=== PATIENT | male | born 1965 | race Caucasian/White ===

== ENCOUNTER 2021-04-10 21:06 | Emergency (ER) | payer BC ==
--- NOTE | 2021-04-10 22:02 | ED Physician Documentation ---
History of Present Illness - Stated complaint Stated Complaint: R LEG SWELLING - Chief complaint Chief Complaint: Ext Problem - History obtained from History obtained from: Patient - History of Present Illness Timing: How many weeks ago (2) Pain level now: 0 Improved by: nothing Worsened by: no exacerbating factors - Additonal information Additional information: c/o 2 weeks of red, swollen, tender area on posterior aspect of right calf. Denies trauma, no h/o similar symptoms. Denies CP, denies dyspnea. Review of Systems Constitutional: denies: Fever Cardiac: denies: Chest pain / pressure Respiratory: denies: Dyspnea, Cough Musculoskeletal: reports: Extremity pain, Extremity swelling PD PAST MEDICAL HISTORY - Past Medical History Past Medical History: Yes Cardiovascular: None Respiratory: None Neuro: None Endocrine/Autoimmune: None GI: None : None HEENT: None Psych: None Musculoskeletal: None Derm: None - Past Surgical History Past Surgical History: No - Present Medications Home Medications: Ambulatory Orders Medication Instructions Recorded Confirmed Rivaroxaban [Xarelto] 10 mg PO DAILY #45 tablet 04/11/21 - Allergies Allergies/Adverse Reactions: Allergies Allergy/AdvReac Type Severity Reaction Status Date / Time No Known Drug Allergies Allergy Verified 04/10/21 21:32 - Social History Does the pt smoke?: No Smoking Status: Never smoker Does the pt drink ETOH?: Yes Does the pt have substance abuse?: No - Immunizations Immunizations are current?: Yes - POLST Patient has POLST: No PD ED PE NORMAL - Vitals Vital signs reviewed: Yes - General General: Alert and oriented X 3, No acute distress, Well developed/nourished PD ED PE EXPANDED - Extremities MARK LE visual: 1 - swelling (raised erythema, TTP), tenderness Results - Vitals Vitals: Vital Signs - 24 hr 04/10/21 04/10/21 04/11/21 21:26 21:58 01:25 Temperature 37.2 C 37.2 C 37.1 C Heart Rate 87 85 81 Respiratory 14 15 17 Rate Blood Pressure 156/90 H 152/88 H 149/81 H O2 Saturation 96 96 98 Oxygen O2 Source Room air - Labs Labs: Laboratory Tests 04/11/21 04/11/21 01:30 01:30 PT 13.1 H INR 1.2 APTT 26.2 Sodium 137 Potassium 3.9 Chloride 103 Carbon Dioxide 25 Anion Gap 9.0 BUN 16 Creatinine 0.8 Estimated GFR (MDRD) 100 Glucose 104 H Calcium 8.9 - Rads (name of study) RLE doppler US Radiology: Prelim report reviewed, See rad report, Other (final report indicates "thrombus identified in the left upper medial calf superficial venous system" (presumed to mean right, as the RLE was location of study and not LLE)) PD MEDICAL DECISION MAKING - ED course Complexity details: reviewed results, re-evaluated patient, considered differential, d/w patient ED course: superficial thrombus in "upper medial calf vein" (per radiologist's in terpretation) found on US, correlating with area of erythema and tenderness on exam. Patient says the symptoms have been steadily worsening since they started 2 weeks ago. I d/w patient option of anticoagulation and after discussing risks/benefits of anticoagulation vs. observation for clinical worsening (either option will require f/u with repeat US), patient made informed decision to start anticoagulant at this time, which is my recommendation. Per uptodate, recommendations are for SQ anticoagulants or else prophylactic dose of Xarelto (10mg QD) for 45 days. Xarelto dose given in ED and rx provided, instructed to return if he worsens, including chest pain, dyspnea, fever, and to follow up with PMD for reevaluation and repeat US. Departure - Departure Disposition: 01 Home, Self Care Clinical Impression: Acute superficial venous thrombosis of right lower extremity Condition: Good Instructions: ED Phlebitis Superficial Prescriptions: Rivaroxaban [Xarelto] 10 mg PO DAILY #45 tablet Comments: Follow up with your doctor; call in the morning to arrange for immediate follow up. You will likely need to have the ultrasound repeated within 7-10 days to see if it is changing in size to any significant extent. Discharge Date/Time: 04/11/21 01:43
[2021-04-11] MEDS ORDERED: RIVAROXABAN 10 MG TABLET PO STA (01:10)
[2021-04-11 01:32] VITALS: BP 149/81
[2021-04-11 01:42] LABS: INR 1.2 (0.8-1.2); PT - PROTHROMBIN TIME 13.1 secs (9.9-12.6)
[2021-04-11 01:45] LABS: CALCIUM 8.9 mg/dL (8.5-10.3); CREATININE 0.8 mg/dL (0.6-1.2); POTASSIUM 3.9 mmol/L (3.5-5.0)
[2021-04-11 01:49] LABS: PARTIAL THROMBOPLASTIN TIME 26.2 secs (24.9-33.3)
--- NOTE | 2021-04-11 07:14 | Ultrasound Report ---
PROCEDURE: Duplex Ext Veins Right INDICATIONS: calf pain, swelling, erythema TECHNIQUE: Real-time imaging, as well as color and pulse Doppler interrogation, were performed of the lower extr emity deep veins from the inguinal ligament to the popliteal fossa. COMPARISON: None. FINDINGS: The deep veins are normally compressible, and free of intraluminal thrombus. Color and pu lse Doppler demonstrate normal phasic intraluminal flow. There is normal augmentation response to di stal compression maneuver. Thrombus noted in upper medial calf superficial vein. IMPRESSION: 1. No evidence of tendinosis involving the deep venous system of the right lower extremity. 2. Thrombus identified in the left upper medial calf superficial venous system. Reviewed by: Janice Pittman MD, PhD on 04/11/2021 7:13 AM PDT Approved by: Janice Pittman MD, PhD on 04/11/2021 7:13 AM PDT Station ID: [id number]
== END 2021-04-11 01:43 | disposition home or self-care (01) ==
LOC: ED 21:06
DX: I82.811 Embolism and thrombosis of superficial veins of right lower extremity (principal)
CPT/HCPCS: 36415; 80048; 85610; 85730; 93971; 99283; A9270

== ENCOUNTER 2021-05-30 13:55 | Outpatient (CLI) | payer BC ==
--- NOTE | 2021-05-30 15:43 | Ultrasound Report ---
PROCEDURE: Duplex Ext Veins Right INDICATIONS: SUPERFICIAL THROMBOPHLEBITIS TECHNIQUE: Real-time imaging, as well as color and pulse Doppler interrogation, were performed of the lower extr emity deep veins from the inguinal ligament to the popliteal fossa. COMPARISON: 04/10/2021 venous ultrasound right lower extremity.. FINDINGS: The deep veins are normally compressible, and free of intraluminal thrombus. Color and pu lse Doppler demonstrate normal phasic intraluminal flow. There is normal augmentation response to di stal compression maneuver. The superficial venous thrombosis within the proximal medial right calf i s again seen. IMPRESSION: No DVT found. Persistence of superficial vein thrombus within the medial upper right jemal f area, previously documented. Reviewed by: Colby Abel MD on 05/30/2021 3:42 PM PDT Approved by: Colby Abel MD on 05/30/2021 3:42 PM PDT Station ID: [id number]
== END 2021-05-30 13:56 | disposition home or self-care (01) ==
LOC: DI 13:55
PROVIDERS: ATTEND Family Medicine
DX: I80.01 Phlebitis and thrombophlebitis of superficial vessels of right lower extremity (principal)

== ENCOUNTER 2021-07-30 17:12 | Emergency (ER) | payer BC ==
[2021-07-30 17:21] VITALS: BP 177/101
--- NOTE | 2021-07-30 17:37 | ED Physician Documentation ---
History of Present Illness - Stated complaint Stated Complaint: RT CALF PX - Chief complaint Chief Complaint: Ext Problem - Additonal information Additional information: 56-year-old male return to the emergency department for evaluation of acute onset right mid calf pain that began this morning. He has a history of a superficial thrombophlebitis in the right mid calf that was diagnosed in March 2021. He did complete 45 days of Xarelto. He had a repeat ultrasound In early May that did not show a deep vein thrombosis but he did have persistence of the superficial vein thrombus within the medial right upper calf area Patient denies chest pain or shortness of air. No recent travel. There is no leg swelling. He has no personal history of cancer. There is no family history of deep vein thrombosis. He takes no medications other than occasional Tylenol. Review of Systems Constitutional: denies: Fever, Chills Eyes: reports: Reviewed and negative Ears: reports: Reviewed and negative Nose: reports: Reviewed and negative Throat: reports: Reviewed and negative Musculoskeletal: reports: Other (Right posterior calf tenderness) Neurologic: reports: Reviewed and negative Psychiatric: reports: Reviewed and negative PD PAST MEDICAL HISTORY - Past Medical History Cardiovascular: None Respiratory: None Neuro: None Endocrine/Autoimmune: None GI: None : None HEENT: None Psych: None Musculoskeletal: None Derm: None - Past Surgical History Past Surgical History: No - Present Medications Home Medications: Ambulatory Orders Medication Instructions Recorded Confirmed Rivaroxaban [Xarelto] 10 mg PO DAILY #45 tablet 04/11/21 - Allergies Allergies/Adverse Reactions: Allergies Allergy/AdvReac Type Severity Reaction Status Date / Time No Known Drug Allergies Allergy Verified 07/30/21 17:21 - Social History Does the pt smoke?: No Smoking Status: Never smoker Does the pt drink ETOH?: Yes Does the pt have substance abuse?: No - Immunizations Immunizations are current?: Yes - POLST Patient has POLST: No PD ED PE NORMAL - General General: Alert and oriented X 3, No acute distress - HEENT HEENT: PERRL - Cardiac Cardiac: RRR, No murmur - Respiratory Respiratory: Clear bilaterally - Abdomen Abdomen: Normal bowel sounds, Soft, Non tender, Non distended - Extremities Extremities: No deformity, No tenderness to palpate. No: No calf tenderness / cord (Mild tenderness to the right posterior calf with deep palpation. 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 He was seen in this ER in March diagnosed with a superficial vein thrombus and was started on Xarelto which he took for 45 days. Follow-up ultrasound showed a persistence of this thrombus but no DVT. Ultrasound today again demonstrates the same thrombus without findings of deep vein thrombosis. Etiology of this persistent thrombus in the superficial veins is not clear though the patient does not need to be re-anticoagulated today. I have advised close follow-up with his primary care provider. In the future further evaluation with a floor steward/stewardess is a possibility. Emergent return precautions were discussed for concerns of chest pain, shortness of air or leg swelling redness or concerns of DVT. Departure - Departure Disposition: 01 Home, Self Care Clinical Impression: Superficial vein thrombosis Condition: Stable Record reviewed to determine appropriate education?: Yes Comments: Sedrick you were seen today in the ER for pain in your right calf. You were diagnosed in March with a superficial vein thrombus in your right leg. You did receive 45 days of anticoagulation. A repeat ultrasound in May showed a persistence of the superficial vein thrombus but there has never been any findings of a deep vein thrombus. The ultrasound today again shows that this superficial thrombus. At this time we do not need to resume anticoagulation. I think it is important to discuss this ED visit with your primary care provider. In the long-term they may want to consider further evaluation of your clotting risk by evaluation with a floor steward/stewardess or a blood doctor. If at any point you develop shortness of air or have chest pain, if you develop leg swelling or leg redness then please return immediately to the ER for a second evaluation.
--- NOTE | 2021-07-30 18:54 | Ultrasound Report ---
PROCEDURE: Duplex Ext Veins Right INDICATIONS: leg pain TECHNIQUE: Real-time imaging, as well as color and pulse Doppler interrogation, were performed of the lower extr emity deep veins from the inguinal ligament to the popliteal fossa. COMPARISON: Venous ultrasound 05/30/21, 04/10/21 FINDINGS: The deep veins are normally compressible, and free of intraluminal thrombus. Color and pu lse Doppler demonstrate normal phasic intraluminal flow. There is normal augmentation response to di stal compression maneuver. There is persistent appearance of partial thrombosis of a medial superficial vein. IMPRESSION: 1. No deep venous thrombosis. 2. Persistence of superficial thrombophlebitis. Reviewed by: Verna Ramires MD on 07/30/2021 6:53 PM PDT Approved by: Verna Ramires MD on 07/30/2021 6:53 PM PDT Station ID: [id number]
== END 2021-07-30 18:38 | disposition home or self-care (01) ==
LOC: ED 17:12
DX: I82.811 Embolism and thrombosis of superficial veins of right lower extremity (principal)
CPT/HCPCS: 99284

== ENCOUNTER 2021-08-15 08:00 | Outpatient (CLI) | payer BC ==
[2021-08-15 17:38] LABS: BASOPHILS # (AUTO) 0.1 10^3/uL (0.0-0.1); BASOPHILS % (AUTO) 0.6 %; EOSINOPHILS # (AUTO) 0.1 10^3/uL (0.0-0.7); EOSINOPHILS % (AUTO) 0.8 %; HCT - HEMATOCRIT 45.4 % (42.0-52.0); HGB - HEMOGLOBIN 15.4 g/dL (14.0-18.0); LYMPHOCYTES # (AUTO) 1.7 10^3/uL (1.5-3.5); LYMPHOCYTES % (AUTO) 21.3 %; MEAN CORPUSCULAR HEMOGLOBIN 30.9 pg (27.0-31.0); MEAN CORPUSCULAR HGB CONC 33.9 g/dL (32.0-36.0); MEAN CORPUSCULAR VOLUME 91.2 fL (80.0-94.0); MONOCYTES # (AUTO) 0.4 10^3/uL (0.0-1.0); NEUTROPHILS # (AUTO) 5.6 10^3/uL (1.5-6.6); NEUTROPHILS % (AUTO) 72.2 %; PLT - PLATELET COUNT 190 10^3/uL (130-450); RED BLOOD COUNT 4.98 10^6/uL (4.70-6.10); RED CELL DISTRIBUTION WIDTH 13.2 % (12.0-15.0); WHITE BLOOD COUNT 7.8 x10^3/uL (4.8-10.8)
[2021-08-15 18:03] LABS: ALBUMIN 4.4 g/dL (3.2-5.5); ALBUMIN/GLOBULIN RATIO 1.4 (1.0-2.2); ALKALINE PHOSPHATASE 64 IU/L (42-121); ALT ALANINE AMINOTRANSFERASE 22 IU/L (10-60); AST ASPARTATE AMINOTRANSFERASE 19 IU/L (10-42); BILIRUBIN,TOTAL 1.1 mg/dL (0.2-1.0); BUN - BLOOD UREA NITROGEN 23 mg/dL (6-20); CALCIUM 8.8 mg/dL (8.5-10.3); CARBON DIOXIDE - CO2 27 mmol/L (21-32); CHLORIDE 102 mmol/L (101-111); CHOL/HDL RATIO 4.7 (<5.0); CHOLESTEROL 175 mg/dL; CREATININE 0.8 mg/dL (0.6-1.2); GFR - MDRD 100 (>89); GLUCOSE 92 mg/dL (70-100); HDL CHOLESTEROL 37 mg/dL; LDL CHOLESTEROL,CALCULATED 116 mg/dL; LDL/HDL RATIO 3.1 (<3.6); POTASSIUM 3.9 mmol/L (3.5-5.0); SODIUM 137 mmol/L (135-145); TOTAL PROTEIN 7.5 g/dL (6.7-8.2); TRIGLYCERIDES 109 mg/dL; VLDL CHOLESTEROL 22 mg/dL
[2021-08-15 18:07] LABS: THYROID STIMULATING HORMONE 1.82 uIU/mL (0.34-5.60)
== END 2021-08-15 23:59 | disposition home or self-care (01) ==
LOC: LAB.WCP 08:00
PROVIDERS: ATTEND Family Medicine
DX: I10 Essential (primary) hypertension (principal); Z12.5 Encounter for screening for malignant neoplasm of prostate
CPT/HCPCS: 36415; 80053; 80061; 83721; 84153; 84443; 85025

== ENCOUNTER 2021-08-16 08:00 | Outpatient (CLI) | payer BC | END 2021-08-16 23:59 | disposition home or self-care (01) | LOC: LAB 08:00 | PROVIDERS: ATTEND Family Medicine | DX: Z20.822 Contact with and (suspected) exposure to COVID-19 (principal) ==

== ENCOUNTER 2021-10-06 08:00 | Outpatient (CLI) | payer BC | END 2021-10-06 23:59 | disposition home or self-care (01) | LOC: LAB.WCP 08:00 | PROVIDERS: ATTEND Nurse Practitioner | DX: R97.20 Elevated prostate specific antigen [PSA] (principal) | CPT/HCPCS: 36415; 84153 ==

== ENCOUNTER 2021-10-20 08:20 | Outpatient (CLI) | payer BC ==
--- NOTE | 2021-10-20 10:07 | Ultrasound Report ---
PROCEDURE: Duplex Ext Veins Right INDICATIONS: SVT TO FOLLOW UP ON BLOOD CLOT TECHNIQUE: Real-time imaging, as well as color and pulse Doppler interrogation, were performed of the lower extr emity deep veins from the inguinal ligament to the popliteal fossa. COMPARISON: Ultrasound duplex 07/30/2021 FINDINGS: The deep veins are normally compressible, and free of intraluminal thrombus. Color and pu lse Doppler demonstrate normal phasic intraluminal flow. There is normal augmentation response to di stal compression maneuver. There is persistent appearance of superficial thrombus within the medial superficial vein. No interva l change. IMPRESSION: Persistent appearance of superficial thrombophlebitis. No deep venous thrombosis. Reviewed by: Verna Ramires MD on 10/20/2021 10:06 AM [facility] Approved by: Verna Ramires MD on 10/20/2021 10:06 AM PST Station ID: [id number]
== END 2021-10-20 08:21 | disposition home or self-care (01) ==
LOC: DI 08:20
PROVIDERS: ATTEND Internal Medicine Hematology & Oncology
DX: I80.01 Phlebitis and thrombophlebitis of superficial vessels of right lower extremity (principal)

== ENCOUNTER 2024-03-30 08:24 | Outpatient (CLI) | payer OTHER, BC ==
[2024-03-30 14:47] LABS: BASOPHILS # (AUTO) 0.1 10^3/uL (0.0-0.1); BASOPHILS % (AUTO) 0.6 %; EOSINOPHILS # (AUTO) 0.1 10^3/uL (0.0-0.7); HCT - HEMATOCRIT 45.9 % (42.0-52.0); HGB - HEMOGLOBIN 14.7 g/dL (14.0-18.0); LYMPHOCYTES # (AUTO) 1.7 10^3/uL (1.5-3.5); LYMPHOCYTES % (AUTO) 20.4 %; MEAN CORPUSCULAR HEMOGLOBIN 28.9 pg (27.0-31.0); MEAN CORPUSCULAR VOLUME 90.4 fL (80.0-94.0); MONOCYTES # (AUTO) 0.5 10^3/uL (0.0-1.0); MONOCYTES % (AUTO) 5.7 %; NEUTROPHILS % (AUTO) 71.8 %; PLT - PLATELET COUNT 201 10^3/uL (130-450); RED BLOOD COUNT 5.08 10^6/uL (4.70-6.10); RED CELL DISTRIBUTION WIDTH 13.2 % (12.0-15.0); WHITE BLOOD COUNT 8.3 x10^3/uL (4.8-10.8)
[2024-03-30 15:23] LABS: ALBUMIN 4.2 g/dL (3.2-5.5); ALBUMIN/GLOBULIN RATIO 1.5 (1.0-2.2); ALKALINE PHOSPHATASE 77 IU/L (42-121); ALT ALANINE AMINOTRANSFERASE 19 IU/L (10-60); AST ASPARTATE AMINOTRANSFERASE 15 IU/L (10-42); BILIRUBIN,TOTAL 0.7 mg/dL (0.2-1.0); BUN - BLOOD UREA NITROGEN 16 mg/dL (6-20); CALCIUM 9.3 mg/dL (8.5-10.3); CARBON DIOXIDE - CO2 28 mmol/L (21-32); CHLORIDE 103 mmol/L (101-111); CHOL/HDL RATIO 4.8 (<5.0); CHOLESTEROL 172 mg/dL; CREATININE 0.9 mg/dL (0.6-1.3); GFR - MDRD 87 (>89); GLUCOSE 97 mg/dL (74-104); HDL CHOLESTEROL 36 mg/dL; LDL CHOLESTEROL,CALCULATED 108 mg/dL; SODIUM 136 mmol/L (135-145); TRIGLYCERIDES 142 mg/dL (48-352); VLDL CHOLESTEROL 28 mg/dL
== END 2024-03-30 08:25 | disposition home or self-care (01) ==
LOC: LAB.S 08:24
PROVIDERS: ATTEND Nurse Practitioner
DX: I10 Essential (primary) hypertension (principal); Z13.220 Encounter for screening for lipoid disorders; R97.20 Elevated prostate specific antigen [PSA]
CPT/HCPCS: 36415; 80053; 80061; 83721; 84153; 85025

== ENCOUNTER 2024-04-24 10:15 | Outpatient (CLI) | payer OTHER, BC | END 2024-04-24 10:16 | disposition home or self-care (01) | LOC: LAB.S 10:15 | PROVIDERS: ATTEND Urology | DX: R97.20 Elevated prostate specific antigen [PSA] (principal) | CPT/HCPCS: 36415; 84153; 84154 ==